=== PATIENT | male | born 1975 | race Asian ===

== ENCOUNTER 2019-07-16 09:59 | Inpatient (IN) | payer MEDICAID ==
[~2019-07-16] VITALS: Ht 175.3 cm; Wt 49.9 kg
[2019-07-16 10:03] VITALS: Ht 175.3 cm; Wt 49.9 kg
--- NOTE | 2019-07-16 10:03 | NUR ---
PT BIB [facility] WITH [facility]OC, PER MEDICS PT CALLED 911 AND "WAS JUST BREATHING HEAVY ON THE PHONE" WHEN PD ARRIVED PT WALKED TO THE DOOR, HOWEVER COLLAPSED TO THE GROUND AFTER OPENING THE DOOR" -LOC PER MEDICS PT KEPT STATING "MY NURSE CAN'T BE LEFT ALONE" PER MEDICS UNKNOWN ALLERGIES AND/OR MEDICAL HX SINCE HIS MOM DID NOT SPEAK [place], MEDICS ALSO STATED "MANY SPIDERS ON THE OUTSIDE OF THE HOUSE WITH A BUNCH OF COB WEBS" UPON ARRIVAL PT ALOC, PT RESPONDS TO STERNAL RUB, PT SPEAKS 2-3 WORDS AT A TIME STATING "NURSE, NURSE" PT SHUTTING EYES CLOSED TIGHT, UNABLE TO ASSESS PUPILS, PT CLENCHED TEETH TIGHT WHEN ATTEMPTING ORAL TEMP, PT SHIVERING STATING "COLD IM COLD" PT SKIN PALE, COOL, CLAMMY, PT GOWNED AND PLACED ON FULL CM, NSR, PT HYOPTHERMIC HOWEVER NORMOTENSIVE, AWAITING MSE,
--- NOTE | 2019-07-16 10:48 | NUR ---
PORTABLE XRAY AT BEDSIDE
--- NOTE | 2019-07-16 10:48 | NUR ---
PT HAD EPISODE OF BROWN CHUNKY EMESIS DURING XRAY, MD GHOTRA
--- NOTE | 2019-07-16 10:49 | NUR ---
MUSCULOSKELETAL STIFFENING NOTED, PT IN POSITION
[2019-07-16 10:54] LABS: CALCIUM 8.6 mg/dL (8.5-10.1); CARBON DIOXIDE 20.8 mmol/L (21-32); CHLORIDE SERUM 105 mmol/L (98-107); GFR1 > 60 mL/min; GLUCOSE SERUM 176 mg/dL (74-106); POTASSIUM SERUM 3.6 mmol/L (3.5-5.1); SODIUM SERUM 141 mmol/L (136-145)
[2019-07-16 10:58] LABS: ALBUMIN 4.3 g/dL (3.4-5.0); ALKALINE PHOSPHATASE 99 U/L (46-116); ALT/SGPT 359 U/L (16-63); AST/SGOT 793 U/L (15-37); BILIRUBIN TOTAL 2.27 mg/dL (0.20-1.00); TOTAL PROTEIN, SERUM 7.4 g/dL (6.4-8.2)
--- NOTE | 2019-07-16 10:58 | NUR ---
MOVED FROM T-2B TO T-1 & PLACED IN ISOLATION.
--- NOTE | 2019-07-16 11:05 | NUR ---
er md at bedside for evaluations/assessments.pt on monitors.still noted shivering.awaits test results,reevaluations.
--- NOTE | 2019-07-16 11:17 | NUR ---
to ct test area via stretcher,floyd.awaits test results,reevaluations.
[2019-07-16 11:22] LABS: BASOPHIL % 0.1 % (0-2); PLATELET COUNT 255 x10^3mcL (130-400); RED CELL DISTRIBUTION WIDTH 12.9 % (11.5-14.5)
--- NOTE | 2019-07-16 11:34 | NUR ---
FINISHER DENTURE CALLED FOR RESULT LA 4.3,ANUP ALSTON MADE AWARE.
--- NOTE | 2019-07-16 12:13 | NUR ---
I STARTED 2ND S.L. TO LEFT AC AREA,PT WOKE UP AND I CALLED ER MD.now er md at bedside for reevaluations/assessments.aao person day/date type place.pt tolerated procedures with no incidents.awaits reevaluations.monitors on.
[2019-07-16 12:38] LABS: microscopic required? NO
--- NOTE | 2019-07-16 12:38 | NUR ---
pt currently talking to sister via phone.pt adamant on stating he feels well/better and wants to sign out AMA.awaits er md reevaluations.and i spoke to jonel/sister by phone also and wants me to tell er md to put pt on 5150 as danger to self.pt per sister has psych hx,and does not take care of himself.awaits reevaluations.
[2019-07-16 12:44] LABS: UA SPECIFIC GRAVITY 1.015 (1.005-1.035); urine erythrocyte NEGATIVE (NEGATIVE)
--- NOTE | 2019-07-16 12:57 | NUR ---
to ct test area via chula simon nad.awaits reevaluations.
[2019-07-16 13:17] LABS: AMPHETAMINE QUAL UR NONE DETECTED (See below)
--- NOTE | 2019-07-16 13:45 | NUR ---
WAS ABLE TO USE URINAL AGAIN WITH GOOD RESULTS,600 ML.PT TOLERATED procedures with no incidents.awaits reevaluations.floyd quiros.
--- NOTE | 2019-07-16 14:00 | NUR ---
RESTING MONITORS ON ASLEEP/EYES CLOSED AT TIMES.PT TOLERATED PROCEDURES WITH NO INCIDENTS.AWAITS REEVALUATIONS.CALLUM.
--- NOTE | 2019-07-16 14:20 | NUR ---
L.P. PROCEDURE WITH ANUP ALSTON IN PROGRESS.AWAITS TEST RESULTS,REEVALUATIONS.CALLUM BENZ.
--- NOTE | 2019-07-16 15:15 | NUR ---
CASINO ATTENDANT CALLED FOR result s la 3.4,er md made aware.v.o. by er md for lr liter bolus now,is done.pt tolerated procedures with no incidents.pt flat supine,nad.awaits reevaluations.also pt sister jonel called again for update,er md aware.
--- NOTE | 2019-07-16 16:00 | NUR ---
WAS able to use urinal again with good results,@ 450 ml.pt tolerated procedures with no incidents.hob @ 30 degrees sr up,nad.monitors on.awaits md consult,bed assignment,reevaluations.
[2019-07-16 16:11] LABS: TOTAL PROTEIN CSF < 2.0 mg/dL (15-45)
--- NOTE | 2019-07-16 16:28 | NUR ---
resting waiting for [employer] conference call from consult,reevaluations.floyd quiros.
--- NOTE | 2019-07-16 16:58 | NUR ---
CONSULT TELEMED IN PROGRESS.CALLUM BENZ.AWAITS REEVALUATIONS.MONITORS ON.
--- NOTE | 2019-07-16 17:08 | NUR ---
NEURO CHECKS DONE BY TELE NEURO MD CONSULT.PT WAS ABLE TO STAND AND WALK ON HIS OWN WITH NO PROBLEMS.PT TOLERATED PROCEDURES WITH NO INCIDENTS.AWAITS REEVALUATIONS.
[2019-07-16 17:52] LABS: APPEARANCE CSF HAZY; COLOR CSF COLORLESS; VOLUME CSF 1.7 mL
[2019-07-16 17:53] LABS: RBC CSF 511 /cumm (0); WBC CSF 0 /cumm (0-5)
[2019-07-16 17:54] LABS: APPEARANCE CSF CLEAR; COLOR CSF COLORLESS; RBC CSF 39 /cumm (0); WBC CSF 0 /cumm (0-5)
--- NOTE | 2019-07-16 18:02 | NUR ---
PT ENDORSED TO/ACCEPTED BY RAYMOND MELGAR.AWAITS TRANSPORT SERVICES,REEVALUATIONS.
[2019-07-16 18:32] VITALS: BP 118/70
--- NOTE | 2019-07-16 18:50 | NUR ---
AT 181 - RECEIVED PATIENT FROM ER NURSE. SETTLED IN ROOM, ORIENTED TO SURROUNDINGS AND PLACED ON CARDIAC MONITORING. ADMITTED WITH ALOC. RESOURCE NURSE AT BEDSIDE DOING PATIENT ADMISSION. PATIENT IS AWAKE, ALERT AND ORIENTED. NO C/O PAIN. AT 183 - IV INFUSION OF NS COMMENCED AT 150 ML/HR. PATIENT IS NPO FOR ABDOMINAL ULTRASOUND. CALL LIGHT WITHIN REACH. WILL ENDORSE CARE TO NIGHT NURSE.
--- NOTE | 2019-07-16 18:52 | NUR ---
RECEIVED PT FROM ER, PT ADMIT FOR ABNORMAL LAB, LIVER DISEASE, PT IS A/O X4, VERBAL RESPONSIVE, LUNG SOUND CLEAR BILATERAL, NO COUGH, NO SOB, PT IS ON TELE 3, NSR, DENY ANY CHEST PAIN OR DISCOMFORT, BOWEL SOUND PRESENT ALL 4 QUADRANTS, NO DISTENTION, NO TENDER. PEDAL PULSE PRESENT BOTH FEET, NO EDEMA, IV AT LEFT AC, NO LEAKING, NO INFITLRATION. ALL ADLS ASSIST, ALL NEED MET, CALL LIGHT IN REACH, WILL CONTINUE TO MONITOR.
--- NOTE | 2019-07-16 19:30 | NUR ---
RECIEEVD PATIENT AT START OF SHIFT A/O X4. ULTRASOUND AT BEDSIDE TO PERFORM ABDOMINAL ULTRASOUND. ON TELE 3 NSR. DENIES PAIN. NO SOB NOTED ON 2L NASAL CANULA ON 99%. NC REMOVED, PATIENT TOLERATED WELL, SATTING 98%. ABDOMEN IS SOFT AND FLAT. NO EDEMA NOTED.PULSES STRONG. SKIN INTACT. IV TO LAC INFUSING WITHOUT ERYTHEMA OR INFILTRATION. IV TO RAC IS SALINE LOCKED AND PATENT. BED LOCKED AND IN LOWEST POSITION. CALL LIGHT AND BEDSIDE TABLE WITHIN REACH.
--- NOTE | 2019-07-16 20:55 | NUR ---
PATIENTS SISTER CALLED TO RECIEVE UPDATE ON CARE. PATIENT APPROVED EXCHANGE OF HIS HEALTHCARE INFORMATION WITH HIS SISTER.
[2019-07-16 20:56] VITALS: BP 117/73
[2019-07-17 06:14] VITALS: BP 111/69
--- NOTE | 2019-07-17 06:30 | NUR ---
PATIENT SLEPT WELL THROUGH THE NIGHT. NO SIGNIFICANT EVENTS. DENIES PAIN. NO SOB. IV INFUSING TO LAC WITHOUT ERYTHEMA OR INFILTRATION. RAC SALINE LOCKED. CALL LIGHT WITHIN REACH. WILL ENDORSE CARE TO DAYSHIFT NURSE.
--- NOTE | 2019-07-17 07:30 | NUR ---
PT IN BED, IN NO ACUTE DISTRESS, VERBAL, ABLE TO MAKE NEEDS KNOWN, CALM AND COOPERATIVE, PERRLA, RESP EVEN, NO SOB/COUGH, RA, TELE, NSR, DENIED CP/PRESSURE/PAIN, DENIED N/V/D, ABD FLAT AND NON-TENDER TO TOUCH, AMBULATORY, CONTINENT, IV PATENT AND INFUSING WELL, PALP PULSES, CAP REFILL < 3S, SKIN D/W/C, ALL NEEDS ADDRESSED AT THIS TIME, SAFETY MONITOR, CONTINUE TO MONITOR
--- NOTE | 2019-07-17 07:30 | NUR ---
RECEIVED REPORT FROM JESSICA MELGAR, PT IN BED IN NO ACUTE DISTRESS
[2019-07-17 08:56] LABS: CALCIUM 7.4 mg/dL (8.5-10.1); CARBON DIOXIDE 26.4 mmol/L (21-32); CHLORIDE SERUM 112 mmol/L (98-107); CREATININE SERUM 0.7 mg/dL (0.7-1.3); GFR1 > 60 mL/min; GLUCOSE SERUM 98 mg/dL (74-106); MAGNESIUM 1.8 mg/dL (1.8-2.4); PHOSPHOROUS 2.5 mg/dL (2.5-4.9); POTASSIUM SERUM 3.7 mmol/L (3.5-5.1); SODIUM SERUM 146 mmol/L (136-145)
[2019-07-17 09:22] VITALS: BP 110/65
--- NOTE | 2019-07-17 09:37 | NUR ---
AM MEDS GIVEN PER MD ORDER VIA EMAR, NO ASE, TOLERATED WELL, CONTINUE TO MONITOR
--- NOTE | 2019-07-17 11:49 | NUR ---
PT DECIDED TO LEAVE AMA, DR RONDON DISCUSSED W/ PT, PT STILL WANT TO LEAVE AMA, IV REMOVED, IV CATH TIP INTACT, NO ACTIVE BLEEDING NOTED, TELE #[address] REMOV[address] [facility] [place], PT IN NO ACUTE DISTRES, PT SAID COUSIN WILL P/U AT 1300 TO HOME, ALL NEEDS ADDRESSED AT THIS TIME, NO FURTHER CONCERNS NEEDED WHEN ASKED, CHARGE NURSE JUAN MADE AWARE
[2019-07-20 14:07] LABS: VITAMIN B1 (THIAMINE) 113.8 nmol/L (66.5-200.0)
== END 2019-07-17 12:54 | disposition left against medical advice (07) | DRG 92 ==
LOC: ED 09:59 → MU 17:27 → DU 07-17 07:31
PROVIDERS: Emergency Medicine; ADMIT Internal Medicine
PROC: 009U3ZZ Drainage of Spinal Canal, Percutaneous Approach (ICD-10-PCS; principal; 2019-07-16)
DX: G92 Toxic encephalopathy (principal); E87.2 Acidosis; I85.10 Secondary esophageal varices without bleeding; F20.9 Schizophrenia, unspecified; Z53.21 Procedure and treatment not carried out due to patient leaving prior to being seen by health care provider; K74.60 Unspecified cirrhosis of liver
CPT/HCPCS: 84425; G0378; G0480; J0696; J2405; J3370; J7030; J7120; Q0092; Q9967